=== PATIENT | male | born 1995 | race Native Hawaiian/Other Pacific Islander ===

== ENCOUNTER 2017-08-14 20:00 | Emergency (ER) | payer SELFPAY ==
[2017-08-14 20:01] VITALS: BP 134/63; PULSE 78; RESP 16; TEMP 98.7; O2SAT 99
[2017-08-14] MEDS ORDERED: TRAM50TA PO (20:30)
--- NOTE | 2017-08-14 20:43 | PD ---
HPI Chief Complaint: Back/ Neck Pain or Injury Time Seen by Provider: 20:31 Travel History International Travel<30 days: No Contact w/Intl Traveler<30days: No Traveled to known affect area: No History of Present Illness HPI 22yo M with chronic neck pain here with c/o right anterior neck pain s/p fall today. Pt was playing around the stairs at fell down one step at around 12: 20pm today. Did not have LOC. Pain is localized in right anterior neck and sharp and worst with movement. Denies any fever, visual changes, chest pain, sob, n/v, abdominal pain, focal weakness or numbness. PFSH Past Medical History Medical History: Denies Significant Hx Past Surgical History Surgical History: No Previous Surgery Appendectomy: Yes Social History Alcohol Use: No Tobacco Use: No Substance Use: No Allergies-Medications (Allergen,Severity, Reaction): Coded Allergies: ketorolac (Verified Allergy, Severe, 08/14/17) No Known Drug Allergies (Verified Allergy, Unknown, 08/14/17) Reported Meds & Prescriptions Reported Meds & Active Scripts Active Reported Tramadol (Tramadol HCl) 50 Mg Tab 50 Mg PO DIRECTED PRN Review of Systems Except as stated in HPI: all other systems reviewed are Neg Physical Exam Narrative GENERAL: 22yo M in mild distress. SKIN: Focused skin assessment warm/dry. HEAD: Atraumatic. Normocephalic. EYES: Pupils equal and round at 3mm bilaterally. No periorbital ecchymoses. No scleral icterus. No injection or drainage. ENT: Throat: Uvula midline. No malocclusion. No trismus. No hemotympanum. NECK: No midline cervical spine ttp. +TTP right sternocleidomastoid muscle. CARDIOVASCULAR: Regular rate and rhythm. No murmur appreciated. RESPIRATORY: No accessory muscle use. Clear to auscultation. Breath sounds equal bilaterally. GASTROINTESTINAL: Abdomen soft, non-tender, nondistended. MUSCULOSKELETAL: No obvious deformities. No clubbing. No cyanosis. No edema. NEUROLOGICAL: Awake and alert. No obvious cranial nerve deficits. Motor grossly within normal limits. Normal speech. PSYCHIATRIC: Appropriate mood and affect; insight and judgment normal. Data Data Last Documented VS Vital Signs Date Time Temp Pulse Resp B/P (MAP) Pulse Ox O2 Delivery O2 Flow Rate FiO2 08/14/17 20:01 98.7 78 16 134/63 (86) 99 Room Air Orders Orders Diazepam (Valium) (08/14/17 20:45) Ketorolac Inj (Toradol Inj) (08/14/17 20:45) Acetamin-Hydrocod 325-5 Mg ([place] 5-325 (08/14/17 22:00) MDM Medical Decision Making Medical Screen Exam Complete: Yes Emergency Medical Condition: Yes Differential Diagnosis Musculoskeletal pain vs. muscle sprain Narrative Course 22yo M with right sided neck pain that is very musculoskeletal. Pt given valium and lortab and reevaluated at bedside. Said pain has improved. Pt now able to full rotate his neck left and right. No focal neurologic deficits. Return precautions given. Diagnosis Primary Impression: Musculoskeletal pain Patient Instructions: General Instructions Departure Forms: Tests/Procedures Additional Instructions: Please follow up with [facility] [place] in 3-7 days. Return to the ED if symptoms worsen. Med/Other Pt SpecificInfo: Prescription(s) given Scripts Acetaminophen (Tylenol) 325 Mg Tab 650 MG PO Q6H Y for PAIN SCALE 1 TO 4, #20 TAB 0 Refills Prov: Dea Douglas DO 08/14/17 Disposition: 01 DISCHARGE HOME Condition: Stable Dea Douglas DO Aug 14, 2017 20:43
[2017-08-14] MEDS ORDERED: KETOROLAC TROMETHAMINE 60 MG/2 ML (IM) VIAL IM ONE (20:45)
[2017-08-14] MEDS ORDERED: DIAZEPAM 5 MG TAB PO ONE (20:45)
[2017-08-14] MEDS ORDERED: ACETAMINOPHEN/HYDROcodone 325 MG/5 MG TAB PO ONE (22:00)
[2017-08-14] MEDS ORDERED: TYLE325T PO (22:48)
== END 2017-08-14 22:58 | disposition home or self-care (01) ==
LOC: NEPD 20:00
DX: M54.2 Cervicalgia (principal); Z79.899 Other long term (current) drug therapy; Z88.8 Allergy status to other drugs, medicaments and biological substances
CPT/HCPCS: 99283

== ENCOUNTER 2017-12-06 08:10 | Emergency (ER) | payer OTHER ==
[~2017-12-06] VITALS: Ht 177.8 cm; Wt 76.0 kg
[~2017-12-06 08:10] MED LIST: TRAM50TA PO; TYLE325T PO
[2017-12-06 08:11] VITALS: BP 148/67; PULSE 98; RESP 18; TEMP 99.1; O2SAT 99
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
[2017-12-06] MEDS ORDERED: IBUP1TAB7 PO (08:54)
[2017-12-06] MEDS ORDERED: ROBA500T PO (08:54)
[2017-12-06] MEDS ORDERED: IBUPROFEN 800 MG TAB PO ONE (09:00)
[2017-12-06] MEDS ORDERED: METHOCARBAMOL 500 MG TAB PO ONE (09:00)
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
[2017-12-06 10:45] VITALS: BP 127/82; PULSE 85; RESP 16; O2SAT 99
== END 2017-12-06 10:46 | disposition home or self-care (01) ==
LOC: NEPD 08:10
DX: S16.1XXA Strain of muscle, fascia and tendon at neck level, initial encounter (principal); S46.811A Strain of other muscles, fascia and tendons at shoulder and upper arm level, right arm, initial encounter; V43.52XA Car driver injured in collision with other type car in traffic accident, initial encounter
CPT/HCPCS: 72125; 99283; L0150